=== PATIENT | male | born 1965 | race Caucasian/White ===

== ENCOUNTER 2018-09-29 05:27 | Emergency (ER) | payer BC ==
[2018-09-29] MEDS ORDERED: IBUPROFEN 600 MG TABLET PO ONE (05:47)
--- NOTE | 2018-09-29 05:47 | Emergency Department Record ---
History of Present Illness - General Chief complaint: Pain Stated complaint: RIGHT SHOULDER PAIN Time Seen by Provider: 09/29/18 05:36 Source: Patient Mode of Arrival: Ambulatory Limitations: No limitations - History of Present Illness Initial comments: The patient has had R shoulder pain for a day. The pain seems to be worse with abduction > 90 degrees with his R shoulder. The patient did do some "wrenching" 3 days ago at work that he does not normally do. The patient denies any L sided CP, SOB, ARASH, sweating, nausea, REED, or any CP with exertion. At one point the patient felt that the pain may have been radiating to the R chest and he became worried that it could be his heart. He has had no cardiac issues and he has no cardiac risk factors. Due to not being able to find a comfortable position in bed he decided to come to the ER. MD Complaint: Extremity pain, Joint pain Onset/Timin -: Days(s) Location: Right, Shoulder Severity scale (1-10): 6 Quality: Aching Consistency: Constant Improves with: Nothing Worsens with: Nothing - Related Data Home Medications Medication Instructions Recorded Confirmed Last Taken Aspirin [Aspirin EC] 81 mg PO DAILY 09/29/18 09/29/18 Unknown Previous Rx's Medication Instructions Recorded Naproxen [Naprosyn] 500 mg PO BID #14 tablet. 09/29/18 Allergies Allergy/AdvReac Type Severity Reaction Status Date / Time No Known Allergies Allergy Unverified 08/30/17 15:36 Travel Screening - Travel/Exposure Within Last 30 Days Have you traveled within the last 30 days?: No Review of Systems Constitutional: Denies: Chills, Fever Eyes: Denies: Eye discharge ENT: Denies: Congestion Respiratory: Denies: Cough, Dyspnea, Hemoptysis Past Medical History - SOCIAL HISTORY Smoking Status: Never smoker Alcohol Use: None Drug Use: None - RESPIRATORY Hx Respiratory Disorders: No - CARDIOVASCULAR Hx Cardio Disorders: No - NEURO Hx Neuro Disorders: No - GI Hx GI Disorders: No - Hx Genitourinary Disorders: No - ENDOCRINE Hx Endocrine Disorders: No - MUSCULOSKELETAL Hx Musculoskeletal Disorders: No - PSYCH Hx Psych Problems: No - HEMATOLOGY/ONCOLOGY Hx Hematology/Oncology Disorders: No Family Medical History Any Significant Family History?: Yes Hx Diabetes: Father, Mother Hx Heart Disease: Mother, Brother/Sister Physical Exam - General General Appearance: Alert, Oriented x3, Cooperative, No acute distress - Head Head exam: Atraumatic, Normocephalic - Eye Eye exam: Normal appearance, PERRL - ENT Throat exam: Normal inspection. negative: Tonsillar erythema, Tonsillar exudate - Neck Neck exam: Normal inspection, Full ROM. negative: Tenderness - Respiratory Respiratory exam: Normal lung sounds bilaterally. negative: Chest wall tenderness, Decreased breath sounds, Respiratory distress - GI/Abdominal GI/Abdominal exam: Soft, Normal bowel sounds. negative: Tenderness - Extremities Extremities exam: Normal inspection, Full ROM (There is full ROM of the R shoulder with the pain reproduced with abduction > 90 degrees. ), Normal capillary refill, Other (The R arm and hand is NVI.). negative: Calf tenderness , Joint swelling, Pedal edema, Tenderness - Back Back exam: Reports: Normal inspection, Muscle spasm, Paraspinal tenderness (The pain is reproducible with palpation of the R paraspinal mid thoracic area just medial to his scapula.). Denies: Vertebral tenderness Image of Body Front/Back: 1 - Area of pain and tenderness. - Neurological Neurological exam: Alert, Normal gait, Oriented X3. negative: Abnormal gait, Altered, Motor sensory deficit - Skin Skin exam: negative: Rash Course Vital Signs 09/29/18 05:31 Temperature 98.2 F Pulse Rate 67 Respiratory 20 Rate Blood Pressure 137/87 Pulse Ox 97 - Reevaluation(s) Reevaluation #1: I did discuss the EKG, lab tests and xray with the patient. It clearly does not appear to be a heart condition causing his R shoulder pain. He is to be careful at work and to use Naprosyn for pain. The patient is to see his PCP for recheck next week if not better. 09/29/18 06:49 Medical Decision Making - Data Complexity MDM Data: Labs Ordered and/or Reviewed, X-Ray Ordered and/or Reviewed, EKG Ordered and/or Reviewed - Lab Data Result diagrams: 09/29/18 06:00 09/29/18 06:00 - EKG Data -: EKG Interpreted by Me EKG: No Acute Changes (Sinus Caio at 48. Neg for ST changes. Borderline nonspecific IVCD.) - Radiology Data Radiology results: Report reviewed (R Shoulder: Neg.) Disposition Disposition: Discharge Clinical Impression: Strain of shoulder, right Qualifiers: Encounter type: initial encounter Qualified Code(s): S46.911A - Strain of unspecified muscle, fascia and tendon at shoulder and upper arm level, right arm , initial encounter Disposition: Home, Self-Care Condition: (2) Stable Instructions: Shoulder Sprain (ED) Additional Instructions: Please use Naprosyn for pain and rest the shoulder if possible. Please see your family doctor if not better in a week. Return to the ER for any worsening issues or pain. Prescriptions: Naproxen [Naprosyn] 500 mg PO BID #14 tablet.dr Forms: Patient Portal Access Time of Disposition: 06:51 Quality - Quality Measures Quality Measures: N/A - Blood Pressure Screening View Details: Yes Does Patient Have Any of the Following: No Blood Pressure Classification: Pre-Hypertensive BP Reading Systolic Measurement: 137 Diastolic Measurement: 87 Screening for High Blood Pressure: < Pre-Hypertensive BP, F/U Documented > [ [id number]] Pre-Hypertensive Follow-up Interventions: Referral to alternative/primary care provider.
[2018-09-29 06:07] LABS: BASO % 0.3 % (0-6); EOS % 1.8 % (0-6); GRAN % 54.6 % (47-80); HEMATOCRIT 42.8 % (42.0-52.0); HEMOGLOBIN 14.8 gm/dl (14.0-18.0); LYMPH % 32.6 % (16-45); MEAN CELL VOLUME 90.3 fl (81-97); MEAN CORPUSCULAR HEMOGLOBIN 31.2 pg (27-33); MEAN CORPUSCULAR HGB CONC 34.6 g/dl (32-36); MEAN PLATELET VOLUME 10.5 fl (7.4-10.4); MONO % 10.7 % (0-9); PLATELET COUNT 191 K/uL (130-400); RED BLOOD COUNT 4.74 M/uL (4.40-5.70); RED CELL DISTRIBUTION WIDTH 12.4 % (11.5-14.5)
[2018-09-29 06:23] LABS: BLOOD UREA NITROGEN 22 mg/dL (6-20); EST GLOMERULAR FILTRATION RATE > 60 mL/min
[2018-09-29 06:24] LABS: TOTAL PROTEIN 6.8 g/dL (6.6-8.7)
[2018-09-29 06:26] LABS: GLUCOSE,RANDOM 104 mg/dL (74-109)
[2018-09-29 06:28] LABS: ALB/GLOB RATIO 1.5 (1.1-1.8); ALBUMIN 4.1 g/dL (4.0-5.0); ALKALINE PHOSPHATASE 64 U/L (40-129); ALT/SGPT 19 U/L (<41); AST/SGOT 23 U/L (10.0-50.0)
--- NOTE | 2018-10-02 07:45 | RADIOLOGY REPORT ---
EXAM: RIGHT SHOULDER COMPLETE HISTORY: SUPERIOR AND POSTERIOR RIGHT SHOULDER PAIN WHEN ELEVATING ARM FOR THE PAST TWO DAYS. NO KNOWN INJURY. TECHNIQUE: Internal and external humerus rotation AP views of the right shoulder were obtained as well as scapular Y-views. Comparison: None. Encounter: Initial. FINDINGS: There is normal bone mineralization. No acute fracture, dislocation , or destructive bone lesion is seen. There are mild hypertrophic degenerative changes of the acromioclavicular and glenohumeral joints. No periarticular erosion. No focal soft tissue abnormality. IMPRESSION: NO ACUTE BONE NOR JOINT ABNORMALITY. MILD DEGENERATIVE CHANGES. JOB NUMBER: [id number] [facility]
== END 2018-09-29 07:04 | disposition home or self-care (01) ==
LOC: ER 05:27
DX: S46.911A Strain of unspecified muscle, fascia and tendon at shoulder and upper arm level, right arm, initial encounter (principal); M25.511 Pain in right shoulder; R07.9 Chest pain, unspecified; M54.6 Pain in thoracic spine; X50.0XXA Overexertion from strenuous movement or load, initial encounter; Y92.63 Factory as the place of occurrence of the external cause; Y99.0 Civilian activity done for income or pay
CPT/HCPCS: 80053; 84484; 85025; 93005; 93010; 99284